=== PATIENT | female | born 2000 | race African-American/Black ===

== ENCOUNTER 2022-07-02 18:13 | Emergency (ER) | payer SELFPAY ==
[~2022-07-02] VITALS: Ht 157.5 cm; Wt 109.0 kg
[2022-07-02 18:27] VITALS: BP 141/88
== END 2022-07-02 19:30 | disposition left against medical advice (07) ==
LOC: ER 18:36
DX: Z53.21 Procedure and treatment not carried out due to patient leaving prior to being seen by health care provider (principal)